=== PATIENT | male | born 1985 | race Two or more races ===

== ENCOUNTER 2021-10-04 02:06 | Emergency (ER) | payer MEDICAID, OTHER ==
[~2021-10-04] VITALS: Ht 170.2 cm; Wt 86.2 kg
[2021-10-04 05:24] VITALS: BP 108/70
== END 2021-10-04 05:21 | disposition home or self-care (01) ==
LOC: ER 02:06
DX: U07.1 COVID-19 (principal)
CPT/HCPCS: 36415; 87426

== ENCOUNTER 2023-08-01 23:58 | Emergency (ER) | payer MEDICAID ==
[~2023-08-01] VITALS: Ht 167.6 cm; Wt 81.4 kg
[2023-08-02 00:45] VITALS: BP 117/67
[2023-08-02 01:44] LABS: Rapid Influenza A Negative (Negative); Rapid Influenza B Negative (Negative)
[2023-08-02 01:45] LABS: COVID19 ANTIGEN SOFIA FIA NEGATIVE (NEGATIVE)
[2023-08-02 02:16] VITALS: PULSE 93; RESP 16; O2SAT 99
[2023-08-02] MEDS ORDERED: AMOX500T86 PO (03:27)
== END 2023-08-02 03:35 | disposition home or self-care (01) ==
LOC: ER 23:58
DX: J02.9 Acute pharyngitis, unspecified (principal); Z20.822 Contact with and (suspected) exposure to COVID-19
CPT/HCPCS: 36415; 87426; 87804

== ENCOUNTER 2024-07-05 00:10 | Emergency (ER) | payer MEDICAID ==
[~2024-07-05] VITALS: Ht 170.2 cm; Wt 83.6 kg
[~2024-07-05 00:10] MED LIST: AMOX500T86 PO; AMOX875T4 PO; IBUP-1456 PO
[2024-07-05 00:47] VITALS: TEMP 98.5
[2024-07-05 00:57] VITALS: BP 114/71; PULSE 84; RESP 16; O2SAT 98
[2024-07-05] MEDS ORDERED: ACE3T PO (03:42)
[2024-07-05] MEDS: KETOROLAC TROMETH 60MG/2ML VIAL IM ONE (03:55)
== END 2024-07-05 04:27 | disposition home or self-care (01) ==
LOC: ER 00:10
DX: S62.603A Fracture of unspecified phalanx of left middle finger, initial encounter for closed fracture (principal); Z79.1 Long term (current) use of non-steroidal anti-inflammatories (NSAID); Z79.899 Other long term (current) drug therapy; X50.1XXA Overexertion from prolonged static or awkward postures, initial encounter; Y93.89 Activity, other specified; Y92.89 Other specified places as the place of occurrence of the external cause; Y99.8 Other external cause status
CPT/HCPCS: 29130; 73140; 96372; 99283; J1885